=== PATIENT | male | born 1975 | race Caucasian/White ===

== ENCOUNTER 2016-10-12 07:29 | Emergency (ER) | payer OTHER, SELFPAY | END 2016-10-12 07:52 | disposition home or self-care (01) | LOC: NAV ERS 07:29 | DX: K12.2 Cellulitis and abscess of mouth (principal); F17.210 Nicotine dependence, cigarettes, uncomplicated | CPT/HCPCS: 99283 ==

== ENCOUNTER 2018-08-14 07:29 | Emergency (ER) | payer OTHER ==
[2018-08-14] MEDS ORDERED: Amoxicillin/Potassium Clav 875 MG TAB ONE (07:48)
[2018-08-14] MEDS ORDERED: Sulfameth/Trimethoprim DS 800-160mg TAB ONE (07:48)
== END 2018-08-14 08:00 | disposition home or self-care (01) ==
LOC: NAV ERS 07:29
DX: L03.211 Cellulitis of face (principal); F17.210 Nicotine dependence, cigarettes, uncomplicated
CPT/HCPCS: 99283

== ENCOUNTER 2018-08-26 19:48 | Emergency (ER) | payer OTHER ==
[~2018-08-26 19:48] MED LIST: Iopamidol 370 76% 100 ML VIAL ONE
[2018-08-26] MEDS ORDERED: Sodium Chloride 0.9% 1,000 ML ONE (20:20)
[2018-08-26] MEDS ORDERED: Morphine 4 MG/ML VIAL ONE ×2 (20:20→22:10)
[2018-08-26] MEDS ORDERED: Ondansetron PF 4 MG/2 ML Vial ONE (20:20)
[2018-08-26 20:32] LABS: #Basophils 0.1 thou/uL (0.0-0.2); #Lymphocytes 2.9 thou/uL (1.20-3.40); #Monocytes 0.5 thou/uL (0.11-0.59); #Neutrophils 9.2 thou/uL (1.40-6.50); %Basophils 0.9 % (0.0-1.0); %Eosinophils 0.3 % (0.0-10.0); %Lymphocytes 22.7 % (21.0-51.0); %Monocytes 4.2 % (0.0-10.0); %Neutrophils 71.9 % (42.0-75.0); Hemoglobin 15.1 g/dL (14.0-18.0); Mean Corpuscular Hemoglobin 29.1 pg (27.0-31.0); Mean Corpuscular Volume 88.3 fL (78.0-98.0); Mean Platelet Volume 8.7 fL (7.4-10.4); Platelet Count 451 thou/uL (130-400); RBC Distribution Width 11.9 % (11.5-14.5); Red Blood Cell (RBC) Count 5.19 mill/uL (4.70-6.10); White Blood Cell (WBC) Count 12.8 thou/uL (4.8-10.8)
[2018-08-26 20:39] LABS: ALT (SGPT) 87 U/L (8-55); AST (SGOT) 51 U/L (5-34); Albumin 3.9 g/dL (3.5-5.0); Alkaline Phosphatase 102 U/L (40-150); Anion Gap 16 mmol/L (10-20); BUN (Urea Nitrogen) 12 mg/dL (8.9-20.6); Bilirubin, Total 0.2 mg/dL (0.2-1.2); Calc. Creatinine Clearance 0 mL/min (70-130); Carbon Dioxide 27 mmol/L (22-29); Chloride 94 mmol/L (98-107); Estimated GFR-MDRD Greater than 90; Globulin 3.9 g/dL (2.4-3.5); Glucose 158 mg/dL (70-105); Lipase 12 U/L (8-78); Potassium 3.1 mmol/L (3.5-5.1); Protein, Total 7.8 g/dL (6.0-8.3); Sodium 134 mmol/L (136-145)
[2018-08-26] MEDS ORDERED: NS 0.9% w/ 20 MEQ KCL 1,000 ML IV SCH (21:30)
--- NOTE | 2018-08-26 21:38 | CT ---
CT ABDOMEN WITH CONTRAST CT PELVIS WITH CONTRAST: DATE: 08/26/18 at 9:08 p.m. HISTORY: 42-year-old male with epigastric and left lower quadrant abdominal pain with nausea. TECHNIQUE: IV injection of iodinated contrast media: 96 mL Isovue Oral contrast media: Not administered. FINDINGS: Liver is enlarged and has diffusely low attenuation suggestive of fatty liver. Bilateral kidneys, abd ominal aorta, spleen, pancreas, and left adrenal gland, are normal. There is a right adrenal nodule m easuring approximately 2 x 1.5 x 1 cm. There is somewhat severe mural edema and mural thickening thro ughout the sigmoid colon. There is an approximately 3 x 2.5 x 2 cm collection of large number of extr aluminal gas bubbles, interspersed with a small amount of fluid, abutting the superior surface of the sigmoid colon. There is severe fat stranding representing edema surrounding the sigmoid colon and cage rrounding multiple adjacent small bowel loops. There is a small amount of free fluid at the pelvic in let bilaterally along the paracolic gutters, right greater than left. This has spilled into the depen dent portion of the pelvic cavity where there is a small amount of unorganized free fluid. Adjacent s mall bowel loops in the lower abdomen are fluid filled and have mural thickening with increased mural enhancement, probably reactive. Urinary bladder is incompletely distended. IMPRESSION: 1. Evidence for severe, perforated colonic diverticulitis, including moderately large collection of contained, extraluminal gas. 2. Hepatomegaly and hepatic steatosis. DEBBI Mejia POS: FLAQUITA
[2018-08-26] MEDS ORDERED: Piperacillin/Tazobactam 3.375 GM VIAL ONE (21:45)
[2018-08-26] MEDS ORDERED: Sodium Chloride 0.9% 100 ML ONE (21:46)
== END 2018-08-26 22:19 | disposition short-term general hospital (02) ==
LOC: NAV ERS 19:48
DX: K57.20 Diverticulitis of large intestine with perforation and abscess without bleeding (principal); F17.210 Nicotine dependence, cigarettes, uncomplicated
CPT/HCPCS: 74177; 80053; 83605; 83690; 85025; 87040; 87149; 96361; 96374; 96375; 96376; J2270; J2405; J2543; J7050

== ENCOUNTER 2018-09-14 10:55 | Emergency (ER) | payer OTHER | END 2018-09-14 11:20 | disposition home or self-care (01) | LOC: NAV ERS 10:55 | DX: Z43.3 Encounter for attention to colostomy (principal); F17.210 Nicotine dependence, cigarettes, uncomplicated | CPT/HCPCS: 99282 ==